=== PATIENT | female | born 1960 | race African-American/Black ===

== ENCOUNTER 2019-02-23 01:53 | Emergency (ER) | payer OTHER ==
[~2019-02-23] VITALS: Ht 172.7 cm; Wt 87.1 kg
[~2019-02-23 01:53] MED LIST: ASPIR 8181 MG PO; CRESTOR20 MG PO; HYDROCHLOROTHIAZIDE PO; JANUMET 50-1,01 EACH PO; NAPROSYN500 MG PO; PREDNISONE 20 M20 MG PO; QUINAPRIL PO; VENTOLIN HFA 1818 GM INH
[2019-02-23] MEDS ORDERED: ASPIR 8181 MG PO (02:37)
[2019-02-23] MEDS ORDERED: ALEVE220 MG PO (03:13)
[2019-02-23] MEDS ORDERED: ULTRAM 50MG TAB50 MG PO (03:13)
[2019-02-23 04:09] VITALS: BP 164/64
== END 2019-02-23 04:10 | disposition home or self-care (01) ==
LOC: ER 01:53
DX: S30.0XXA Contusion of lower back and pelvis, initial encounter (principal); W01.0XXA Fall on same level from slipping, tripping and stumbling without subsequent striking against object, initial encounter; Y93.89 Activity, other specified; Y92.89 Other specified places as the place of occurrence of the external cause; Y99.8 Other external cause status; I10 Essential (primary) hypertension; E78.00 Pure hypercholesterolemia, unspecified; F17.210 Nicotine dependence, cigarettes, uncomplicated